=== PATIENT | male | born 1985 | race American Indian/Alaskan Native ===

== ENCOUNTER 2017-01-19 11:26 | Emergency (ER) | payer OTHER ==
[2017-01-19 11:46] VITALS: BP 104/73
[2017-01-19] MEDS ORDERED: MOTRIN PO ONE (11:46)
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
--- NOTE | 2017-01-19 15:19 | XRay Report ---
FINAL REPORT EXAM: XR SPINE THORACIC 3V HISTORY: upper back pain TECHNIQUE: Two views thoracic spine. PRIORS: None currently available. FINDINGS: Mild levoscoliosis or curvature of the cervicothoracic spine. No rotatory component. No suspicious osseous lesions. No vertebral anomalies. Kyphotic alignment is intact. Vertebral body heights are uniform. No fracture or subluxation. Prevertebral soft tissues are unremarkable. IMPRESSION: Mild levoscoliosis or curvature of the cervicothoracic spine.
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
== END 2017-01-19 16:08 | disposition home or self-care (01) ==
LOC: ED 11:26
DX: M25.511 Pain in right shoulder (principal); M25.512 Pain in left shoulder; M54.5 Low back pain; G44.319 Acute post-traumatic headache, not intractable; V49.49XA Driver injured in collision with other motor vehicles in traffic accident, initial encounter; Y93.89 Activity, other specified; Y92.89 Other specified places as the place of occurrence of the external cause; Y99.8 Other external cause status
CPT/HCPCS: 72072; 72100